=== PATIENT | female | born 1975 | race Caucasian/White ===

== ENCOUNTER 2017-08-20 19:58 | Emergency (ER) | payer OTHER ==
[~2017-08-20] VITALS: Ht 160 cm; Wt 79.4 kg
[2017-08-20 21:16] LABS: BASOPHIL % 0.7 % (0-2); PLATELET COUNT 384 x10^3mcL (130-400); RED CELL DISTRIBUTION WIDTH 12.7 % (11.5-14.5)
[2017-08-20 21:27] LABS: ALBUMIN 3.8 g/dL (3.4-5.0); ALKALINE PHOSPHATASE 53 U/L (46-116); ALT/SGPT 31 U/L (14-59); AST/SGOT 15 U/L (15-37); BILIRUBIN TOTAL 0.75 mg/dL (0.20-1.00); CALCIUM 8.7 mg/dL (8.5-10.1); CARBON DIOXIDE 25.1 mmol/L (21-32); CHLORIDE SERUM 106 mmol/L (98-107); CHOLESTEROL 160 mg/dL (<200); CHOLESTEROL/HDL RATIO 4.1; CREATININE SERUM 0.7 mg/dL (0.6-1.0); GFR1 > 60 mL/min; GLUCOSE SERUM 106 mg/dL (74-106); HDL CHOLESTEROL 39 mg/dL (40-60); LIPASE 107 IU/L (73-393); POTASSIUM SERUM 3.2 mmol/L (3.5-5.1); SODIUM SERUM 137 mmol/L (136-145); TOTAL PROTEIN, SERUM 7.8 g/dL (6.4-8.2); TRIGLYCERIDES 155 mg/dL (<150)
[2017-08-20 21:28] LABS: UA SPECIFIC GRAVITY <=1.005 (1.005-1.035); microscopic required? YES; urine erythrocyte TRACE (NEGATIVE)
[2017-08-20 21:39] LABS: T3 TOTAL 1.05 ng/mL
[2017-08-20 21:57] LABS: FREE T4 0.98 ng/dL (0.76-1.46); FREE THYROXINE INDEX 2.9 ug/dL (1.4-4.5); T4(THYROXINE) 8.6 ug/dL (4.7-13.3)
[2017-08-20 22:36] VITALS: BP 137/86
== END 2017-08-20 22:36 | disposition home or self-care (01) ==
LOC: ED 19:58
PROVIDERS: Specialist
DX: R00.2 Palpitations (principal); R53.1 Weakness; F41.9 Anxiety disorder, unspecified
CPT/HCPCS: 83880; 84439; J7030

== ENCOUNTER 2017-08-29 17:10 | Emergency (ER) | payer OTHER ==
[~2017-08-29] VITALS: Ht 160 cm; Wt 80.3 kg
[2017-08-29 18:57] LABS: BASOPHIL % 0.8 % (0-2); PLATELET COUNT 358 x10^3mcL (130-400)
[2017-08-29 19:05] LABS: CALCIUM 8.7 mg/dL (8.5-10.1); CARBON DIOXIDE 24.8 mmol/L (21-32); CHLORIDE SERUM 103 mmol/L (98-107); CREATININE SERUM 0.8 mg/dL (0.6-1.0); GFR1 > 60 mL/min; GLUCOSE SERUM 99 mg/dL (74-106); POTASSIUM SERUM 3.5 mmol/L (3.5-5.1); SODIUM SERUM 139 mmol/L (136-145)
[2017-08-29 19:09] LABS: ALBUMIN 4.1 g/dL (3.4-5.0); ALKALINE PHOSPHATASE 74 U/L (46-116); ALT/SGPT 34 U/L (14-59); AST/SGOT 21 U/L (15-37); BILIRUBIN TOTAL 1.64 mg/dL (0.20-1.00); LIPASE 97 IU/L (73-393); TOTAL PROTEIN, SERUM 8.2 g/dL (6.4-8.2)
[2017-08-29 23:27] VITALS: BP 142/89
== END 2017-08-29 23:10 | disposition home or self-care (01) ==
LOC: ED 17:10
PROVIDERS: Emergency Medicine
DX: K80.20 Calculus of gallbladder without cholecystitis without obstruction (principal); R19.7 Diarrhea, unspecified; I10 Essential (primary) hypertension
CPT/HCPCS: J3010; Q0092

== ENCOUNTER 2017-09-13 16:02 | Emergency (ER) | payer OTHER ==
[2017-09-13 17:37] LABS: BASOPHIL % 0.5 % (0-2); PLATELET COUNT 393 x10^3mcL (130-400); RED CELL DISTRIBUTION WIDTH 12.7 % (11.5-14.5)
[2017-09-13 17:38] LABS: CARBON DIOXIDE 21.5 mmol/L (21-32); CHLORIDE SERUM 106 mmol/L (98-107); CREATININE SERUM 0.7 mg/dL (0.6-1.0); GFR1 > 60 mL/min; GLUCOSE SERUM 93 mg/dL (74-106); POTASSIUM SERUM 3.5 mmol/L (3.5-5.1); SODIUM SERUM 139 mmol/L (136-145)
[2017-09-13 17:42] LABS: ALKALINE PHOSPHATASE 83 U/L (46-116); ALT/SGPT 39 U/L (14-59); AST/SGOT 16 U/L (15-37); BILIRUBIN TOTAL 0.8 mg/dL (0.20-1.00)
[2017-09-13 17:43] LABS: TOTAL PROTEIN, SERUM 8.3 g/dL (6.4-8.2)
[2017-09-13 18:00] VITALS: BP 138/85
== END 2017-09-13 18:30 | disposition home or self-care (01) ==
LOC: ED 16:02
PROVIDERS: Emergency Medicine
DX: M94.0 Chondrocostal junction syndrome [Tietze] (principal); F41.1 Generalized anxiety disorder; I10 Essential (primary) hypertension
CPT/HCPCS: 36415; J1885

== ENCOUNTER 2017-09-20 17:25 | Inpatient (IN) | payer OTHER ==
[~2017-09-20] VITALS: Ht 165.1 cm; Wt 78.5 kg
--- NOTE | 2017-09-20 18:06 | NUR ---
Patient came into the emergency department today with a chief complaint of left sided facial numbness. Patient reports that this numbness has slightly resolved. Patient has a complaint of a pressure like headache as well. Patient reports that she has taken Ativan PRN for the past 10 years and reports that her last dose taken was September 04, 2017. PERRL. Patient has a negative arm drift, handgrips are strong and equal bilaterally. Pedal pushes are equally strong bilaterally. No facial asymmetry noted. Patient able to speak in full clear sentences. Patient is awake, alert, and oriented x 4.
--- NOTE | 2017-09-20 18:26 | NUR ---
[facility] COM[facility] PLACED IN THE PTS ROOM PER DR. HINKLE REQUEST.
--- NOTE | 2017-09-20 18:41 | NUR ---
PT WENT TO AND FROM CT VIA WHEELCHAIR AND IN STABLE CONDITION
[2017-09-20 18:49] LABS: UA SPECIFIC GRAVITY <=1.005 (1.005-1.035); microscopic required? YES; urine erythrocyte TRACE (NEGATIVE)
[2017-09-20 18:52] LABS: BASOPHIL % 0.6 % (0-2); PLATELET COUNT 376 x10^3mcL (130-400); RED CELL DISTRIBUTION WIDTH 13.1 % (11.5-14.5)
--- NOTE | 2017-09-20 18:52 | NUR ---
PT SPEAKING WITH TELE [facility] PHYSICIAN AT THIS TIME.
[2017-09-20 18:56] LABS: AMPHETAMINE QUAL UR NONE DETECTED (NEG <=1000)
[2017-09-20 18:59] LABS: CALCIUM 9.2 mg/dL (8.5-10.1); CARBON DIOXIDE 22.5 mmol/L (21-32); CHLORIDE SERUM 105 mmol/L (98-107); CREATININE SERUM 0.9 mg/dL (0.6-1.0); GFR1 > 60 mL/min; GLUCOSE SERUM 90 mg/dL (74-106); POTASSIUM SERUM 3.5 mmol/L (3.5-5.1); SODIUM SERUM 139 mmol/L (136-145)
[2017-09-20 19:03] LABS: ALBUMIN 4.1 g/dL (3.4-5.0); ALKALINE PHOSPHATASE 72 U/L (46-116); ALT/SGPT 42 U/L (14-59); AST/SGOT 22 U/L (15-37)
--- NOTE | 2017-09-20 19:15 | NUR ---
RECEIVED REPORT FROM LALY MANRIQUE.
--- NOTE | 2017-09-20 20:20 | NUR ---
REPORT GIVEN TO SANG MANRIQUE.
[2017-09-20 20:46] VITALS: BP 130/82
--- NOTE | 2017-09-20 20:50 | NUR ---
RECEIEVED PT FROM ED VIA [facility]. ORIENTED PT TO ROOM AND SURROUNDINGS. IV NOTED TO LAC PATENT AND INTACT. TELE 14 PLACED ON PT READING SBR/NSR. INSTRUCTED PT ON THE USE OF CALL LIGHT FOR ASSISTANCE. ENDORSED PT TO PRIMARY NURSE RUTH ANN
--- NOTE | 2017-09-20 20:55 | NUR ---
RECEIVED PT FROM [facility]. PT AOX4. TELE #14, NSR. DENIES CP/PRESSURE. PULSES PRESENT, NO EDEMA NOTED. LUNG SOUNDS CLEAR, ON RA. DENIES SOB/DIFFICULTY BREATHING. BOWEL SOUNDS ACTIVE. VOIDS FREELY. AMBULATORY. SKIN INTACT. IV IN LFA, INTACT AND PATENT. BED IN LOWEST POSITION. CALL LIGHT WITHIN REACH. WILL CONTINUE TO MONITOR.
--- NOTE | 2017-09-21 03:00 | NUR ---
PT RESTING IN BED. RR EVEN AND UNLABORED. NO ACUTE DISTRESS NOTED. CALL LIGHT WITHIN REACH. BED IN LOWEST POSITION. CALL LIGHT WITHIN REACH. WILL CONTINUE TO MONITOR.
[2017-09-21 03:30] LABS: T3 TOTAL 1.17 ng/mL
[2017-09-21 03:36] LABS: FREE T4 1.38 ng/dL (0.76-1.46); FREE THYROXINE INDEX 3.3 ug/dL (1.4-4.5); T4(THYROXINE) 10.3 ug/dL (4.7-13.3)
[2017-09-21 04:02] LABS: CHOLESTEROL/HDL RATIO 4.3; MAGNESIUM 2.4 mg/dL (1.8-2.4); PHOSPHOROUS 3.6 mg/dL (2.5-4.9)
[2017-09-21 06:03] LABS: BASOPHIL % 0.7 % (0-2); PLATELET COUNT 331 x10^3mcL (130-400)
[2017-09-21 06:12] VITALS: BP 138/77
[2017-09-21 06:28] LABS: CALCIUM 8.3 mg/dL (8.5-10.1); CARBON DIOXIDE 22.3 mmol/L (21-32); CHLORIDE SERUM 109 mmol/L (98-107); CREATININE SERUM 0.7 mg/dL (0.6-1.0); GFR1 > 60 mL/min; GLUCOSE SERUM 80 mg/dL (74-106); MAGNESIUM 2.5 mg/dL (1.8-2.4); PHOSPHOROUS 4.9 mg/dL (2.5-4.9); POTASSIUM SERUM 3.6 mmol/L (3.5-5.1); SODIUM SERUM 142 mmol/L (136-145)
--- NOTE | 2017-09-21 07:52 | NUR ---
RECEIVED AWAKE, ALERT BUT VERY ANXIOUS. STATED FEELING ANXIOUS AND CANT BREATHE. O2 2L N/C APPLIED AND OT SATS 99%. DENIES PAIN OR DISCOMFORT AT THIS TIME. NO C/O NUMBNESS. VS WNL. IVF INFUSING WELL AND SITE CLEAR. CALL LIGHT WITHIN REACH. WILL CONTINUE TO MONITOR.
[2017-09-21 10:12] VITALS: BP 141/89
[2017-09-21] MEDS ORDERED: CLA10 PO (13:07)
[2017-09-21 13:24] VITALS: BP 143/84
--- NOTE | 2017-09-21 15:28 | NUR ---
PT WILL BE DC'D HOME THIS PM. DC INSTRUCTIONS GIVEN. HL REMOVED AND SITE CLEAR. NO C/O PAIN OR DISCOMFORT AT THIS TIME. NO RESP. DISTRESS NOTED.PT IS CURRENTLY WAITING FOR RIDE HOME.
--- NOTE | 2017-09-21 17:29 | NUR ---
PT DC'D HOME IN NO DISTRESS. ALERT AND ORIENTED. VS STABLE. NO C/O PAIN OR DISCOMFORT AT THE TIME OF DC. PERSONAL BELONGINGS TAKEN HOME.
== END 2017-09-21 16:55 | disposition home or self-care (01) | DRG 74 ==
LOC: ED 17:25 → DU 19:14
PROVIDERS: Emergency Medicine; ADMIT Family Medicine Sports Medicine
DX: G90.9 Disorder of the autonomic nervous system, unspecified (principal); J03.90 Acute tonsillitis, unspecified; K76.0 Fatty (change of) liver, not elsewhere classified; F41.9 Anxiety disorder, unspecified; R31.9 Hematuria, unspecified; E78.1 Pure hyperglyceridemia; Z68.28 Body mass index [BMI] 28.0-28.9, adult
CPT/HCPCS: 83880; 84439; J1885; J2765; J7030; Q0092

== ENCOUNTER 2020-07-05 03:43 | Emergency (ER) | payer OTHER ==
[~2020-07-05] VITALS: Ht 160 cm; Wt 72.6 kg
[~2020-07-05 03:43] MED LIST: CLA10 PO
[2020-07-05 03:46] VITALS: Ht 160 cm; Wt 72.6 kg
[2020-07-05 04:38] LABS: BASOPHIL % 0.6 % (0-2)
[2020-07-05 04:41] LABS: PLATELET COUNT 411 x10^3mcL (130-400); RED CELL DISTRIBUTION WIDTH 16.2 % (11.5-14.5)
[2020-07-05 04:47] LABS: CALCIUM 8.3 mg/dL (8.5-10.1); CARBON DIOXIDE 28.2 mmol/L (21-32); CHLORIDE SERUM 98 mmol/L (98-107); CREATININE SERUM 0.8 mg/dL (0.6-1.0); GFR1 > 60 mL/min; GLUCOSE SERUM 109 mg/dL (74-106); POTASSIUM SERUM 4.2 mmol/L (3.5-5.1); SODIUM SERUM 132 mmol/L (136-145)
[2020-07-05 04:51] LABS: ALKALINE PHOSPHATASE 64 U/L (46-116); ALT/SGPT 65 U/L (14-59); AST/SGOT 50 U/L (15-37); BILIRUBIN TOTAL 0.8 mg/dL (0.20-1.00); TOTAL PROTEIN, SERUM 6.2 g/dL (6.4-8.2)
[2020-07-05 04:52] LABS: ALBUMIN 2.6 g/dL (3.4-5.0)
[2020-07-05 07:48] VITALS: BP 122/73
== END 2020-07-05 07:48 | disposition home or self-care (01) ==
LOC: ED 03:43
PROVIDERS: Emergency Medicine
DX: R06.00 Dyspnea, unspecified (principal); F41.9 Anxiety disorder, unspecified; I10 Essential (primary) hypertension; R07.89 Other chest pain; R06.02 Shortness of breath
CPT/HCPCS: 83880; J2405; Q0092; Q9967